=== PATIENT | male | born 1965 | race Caucasian/White ===

== ENCOUNTER → 2019-03-14 16:12 | Outpatient (BNVA) | payer BC, SELFPAY | PROVIDERS: Family Provider Nurse Practitioner Family; PCP Nurse Practitioner Family; Visit Provider Nurse Practitioner Family | DX: R19.7 Diarrhea, unspecified (principal) | CPT/HCPCS: 80053; 85025 ==

== ENCOUNTER → 2019-03-15 13:19 | Outpatient (BNVA) | payer BC, SELFPAY | PROVIDERS: Family Provider Nurse Practitioner Family; PCP Nurse Practitioner Family; Visit Provider Nurse Practitioner Family | DX: R19.7 Diarrhea, unspecified (principal) | CPT/HCPCS: 87493; 87505 ==

== ENCOUNTER → 2019-11-21 11:50 | Outpatient (BNVA) | payer BC, SELFPAY | PROVIDERS: Family Provider Nurse Practitioner Family; PCP Nurse Practitioner Family; Visit Provider Family Medicine | DX: N52.9 Male erectile dysfunction, unspecified (principal); Z12.5 Encounter for screening for malignant neoplasm of prostate | CPT/HCPCS: 80053; 80061; 84403; 85025; G0103 ==

== ENCOUNTER 2020-08-20 10:42 | Outpatient (CLI) | payer BC, SELFPAY ==
--- NOTE | 2020-08-20 10:57 | XR_ITS ---
WS: [id number] FOOT RIGHT TECHNIQUE: 3 views of the right foot CLINICAL INFORMATION: PAIN IN RIGHT ANKLE AND JOINTS OF RIGHT FOOT COMPARISON: None. FINDINGS: No evidence of acute fracture or dislocation. Normal tarsal metatarsal alignment. Normal calcaneus. N ormal visualized talar dome. No acute findings. XR/XR foot RT min 3V* [id number] IMPRESSION: Normal right foot.
--- NOTE | 2020-08-20 10:57 | XR_ITS ---
WS: [id number] ANKLE RIGHT TECHNIQUE: 3 views of the right ankle CLINICAL INFORMATION: PAIN IN RIGHT ANKLE AND JOINTS OF RIGHT FOOT COMPARISON: None. FINDINGS: Moderate soft tissue edema worse about the medial malleolus. Normal medial lateral malleolus. Normal talar dome. No acute fractures. XR/XR ankle RT min 3V* [id number] IMPRESSION: Moderate soft tissue edema. No acute fractures.
== END 2020-08-20 10:43 | disposition home or self-care (01) ==
PROVIDERS: PCP Nurse Practitioner Family; Visit Provider Nurse Practitioner Family
DX: M25.571 Pain in right ankle and joints of right foot (principal); R60.0 Localized edema
CPT/HCPCS: 73610; 73630

== ENCOUNTER 2020-08-27 15:34 | Outpatient (CLI) | payer BC, SELFPAY ==
--- NOTE | 2020-08-27 | USCV_ITS ---
Pedro Campos Age: 54 Gender: M : 1965 Exam Date: 08/27/2020 15:59 Ordering Phys: Nikkie Mckeon APN Technologist: Melony Lange [place] [facility] [place]: RIGHT LOWER EXTREMITY PAIN HISTORY: Lower extremity pain. PROCEDURES: Venous duplex imaging was performed in only the right lower extremity. The following venous structures were evaluated: common femoral vein, profunda vein, proximal portion of the greater saphenous vein, superficial femoral vein, and the popliteal vein. In addition, the posterior tibial and peroneal trunk were evaluated. FINDINGS: Normal 2-D Doppler and augmentation and compressibility throughout the lower extremity venous structures. Additional imaging through the proximal calf veins also reveals no thrombus. Limited evaluation of the greater saphenous vein is patent with no thrombus.. CONCLUSIONS No evidence of right lower extremity DVT. Joselo Ledezma MD (Electronically Signed) Final Date: 27 August 2020 16:58 S
== END 2020-08-27 15:35 | disposition home or self-care (01) ==
LOC: RAD 15:36
PROVIDERS: PCP Nurse Practitioner Family; Visit Provider Nurse Practitioner Family
DX: M79.604 Pain in right leg (principal)
CPT/HCPCS: 93971

== ENCOUNTER 2023-07-06 20:00 | Outpatient (CLI) | payer BC, SELFPAY | END 2023-07-06 20:01 | disposition home or self-care (01) | LOC: SLEEP 07-07 04:12 | PROVIDERS: PCP Nurse Practitioner Family; Visit Provider Specialist | DX: G47.33 Obstructive sleep apnea (adult) (pediatric) (principal) | CPT/HCPCS: 95810 ==